=== PATIENT | female | born 1990 | race Caucasian/White ===

== ENCOUNTER 2025-05-09 06:08 | Day surgery (SDC) | payer OTHER, SELFPAY ==
[2025-05-09] VITALS (10 sets, daily range): BP systolic 92–115; BP diastolic 58–69; BMI 24.0
[2025-05-09] MEDS: TRANSDERM-SCOP 1 PATCH TRANSDERM (07:18)
[2025-05-09] MEDS: NORMOSOL-R/PLASMALYTE-A 1000 IV (07:20)
[2025-05-09] MEDS: DILAUDID 0.25 MG IV ×3 (08:47→09:08)
== END 2025-05-09 10:35 | disposition home or self-care (01) ==
LOC: SDS 06:08
PROVIDERS: ATTENDING PHYSICIAN Otolaryngology
DX: J35.01 Chronic tonsillitis (principal); J35.8 Other chronic diseases of tonsils and adenoids
CPT/HCPCS: 42826; 88304